=== PATIENT | female | born 1990 ===

== ENCOUNTER 2018-12-09 16:53 | Emergency (ER) | payer MEDICAID, OTHER ==
[2018-12-09 16:54] VITALS: BMI 32.2
[2018-12-09 17:41] VITALS: BP 96/60; PULSE 88; RESP 16; TEMP 97.6; O2SAT 100
--- NOTE | 2018-12-09 20:41 | ED PDOC ---
HPI: General Adult Time Seen by Provider: 12/09/18 18:50 Chief Complaint (Nursing): Med Refill Chief Complaint (Provider): Med Refill History Per: Patient History/Exam Limitations: no limitations Onset/Duration Of Symptoms: Days (4x days) Current Symptoms Are (Timing): Still Present Severity: Moderate Additional Complaint(s): 28 year old female with a history of seizures presents to the ED for a medication refill. Patient reports that she recently moved to [place] from [place] on 08/13/2018. Due to insurance issues, patient was unable to follow up with PMD or neurologist here, and ran out of her medications. On 11/06/2018 patient reports having a seizure and being hospitalized at [facility] [place]. Patient was there for 1x week for a questionable evaluation of a psychiatric problem. Patient was discharged home with no psychiatric diagnosis. Patient reports having a seizure 3x days ago while at [employer] where she fell onto her right hip. Patient was not evaluated by medical personnel, and went home. Patient reports that she has run out of seizure medications, and her last dose of Keppra and Zonisamide was today. Patient complains of lower back pain since the fall 3x days ago. Otherwise, patient denies having numbness, tingling, dysuria, urinary frequency, fevers, chills, and night sweats. PMD: None. Past Medical History Reviewed: Historical Data, Nursing Documentation, Vital Signs Vital Signs: Last Vital Signs Temp 97.6 F 12/09/18 17:40 Pulse 88 12/09/18 17:40 Resp 16 12/09/18 17:40 BP 96/60 L 12/09/18 17:40 Pulse Ox 100 12/09/18 17:40 PATT Report Viewed: Yes - Medical History PMH: Graves' Disease, Seizures Denies: Chronic Kidney Disease - Family History Family History: States: No Known Family Hx - Social History Current smoker - smoking cessation education provided: No Alcohol: None Drugs: Denies - Immunization History Hx Tetanus Toxoid Vaccination: No Hx Influenza Vaccination: No Hx Pneumococcal Vaccination: No - Home Medications Home Medications: Ambulatory Orders Medication Instructions Recorded Clonazepam [Klonopin] 1 mg PO HS 12/18/17 Levetiracetam [Keppra] 750 mg PO BID 12/18/17 Zonisamide [Zonegran] 300 mg PO BID 12/18/17 Naproxen 375 mg PO BID PRN #20 tablet 02/25/18 Lacosamide [Vimpat] 200 mg PO BID #20 tab 12/09/18 Levetiracetam [Keppra] 750 mg PO BID #30 tablet 12/09/18 Zonisamide [Zonegran] 100 mg PO BID #50 capsule 12/09/18 - Allergies Allergies/Adverse Reactions: Allergies Allergy/AdvReac Type Severity Reaction Status Date / Time No Known Allergies Allergy Verified 12/09/18 17:40 Review of Systems ROS Statement: Except As Marked, All Systems Reviewed And Found Negative Constitutional: Negative for: Fever, Chills, Sweats Genitourinary Female: Negative for: Dysuria, Frequency Musculoskeletal: Positive for: Back Pain (lower back pain) Neurological: Negative for: Numbness ((-) tingling) Physical Exam - Reviewed Nursing Documentation Reviewed: Yes Vital Signs Reviewed: Yes - Physical Exam Appears: Positive for: Well, Non-toxic, No Acute Distress Head Exam: Positive for: ATRAUMATIC, NORMOCEPHALIC Cardiovascular/Chest: Positive for: Regular Rate, Rhythm Respiratory: Positive for: Normal Breath Sounds Back: Positive for: Other (mild tenderness on palpation of bilateral lower back. (-) cervical tenderness, (-) lumbar tenderness. Normal flexion and extension at back. Normal flexion and extension at bilateral hips. (+) ecchymosis on right side of hip.) Neurologic/Psych: Positive for: Alert, Oriented (3x) - ECG O2 Sat by Pulse Oximetry: 100 (RA) Pulse Ox Interpretation: Normal Medical Decision Making Medical Decision Makin:50 Initial impression: 28 year old female in the ED for a medication refill and lower back pain status post seizure. Initial plan: [facility] website. Evaluation shows that the last refill of Clonazepam was on 10/03/2018 for 10x days. No other recent activity for refills of Clonazepam in any other states. Patient will be prescribed Keppra, Zonisamide, and Vimpat until neurology follow up appointment on 12/20/2018. Return instructions provided. Scribe Attestation: Documented byDaysi Estrada, acting as a scribe for Funmi Amanda PA-C. Provider Scribe Attestation: All medical record entries made by the Scribe were at my direction and personally dictated by me. I have reviewed the chart and agree that the record accurately reflects my personal performance of the history, physical exam, medical decision making, and the department course for this patient. I have also personally directed, reviewed, and agree with the discharge instructions and disposition. Disposition - Clinical Impression Clinical Impression: Medicine refill, Seizure disorder - Disposition Referrals: [facility] [Outside] Disposition Time: 20:30 Condition: STABLE Additional Instructions: Return to ER if you have recurrent seizures or have a delay in seeing your neurologist. Take Ibuprofen or Tylenol for back pain. Prescriptions: Lacosamide [Vimpat] 200 mg PO BID #20 tab Levetiracetam [Keppra] 750 mg PO BID #30 tablet Zonisamide [Zonegran] 100 mg PO BID #50 capsule Instructions: Seizures, Adult (DC) Forms: [employer] (Portuguese) Print Language: TUVALUAN
== END 2018-12-09 20:35 | disposition home or self-care (01) ==
LOC: H.ER 16:53
DX: G40.909 Epilepsy, unspecified, not intractable, without status epilepticus (principal); Z76.0 Encounter for issue of repeat prescription; E05.00 Thyrotoxicosis with diffuse goiter without thyrotoxic crisis or storm; Z79.899 Other long term (current) drug therapy

== ENCOUNTER 2019-03-12 23:24 | Emergency (ER) | payer OTHER, MEDICAID ==
[2019-03-12 23:31] VITALS: RESP 18; BMI 26.4
[2019-03-13 01:33] LABS: BASO % 0.5 % (0.0-2.0); EOS # 0.1 K/uL (0.0-0.7); EOS % 1.2 % (0.0-4.0); HEMOGLOBIN 13.3 g/dL (12.0-16.0); LYMPH # 2.7 K/uL (1.0-4.3); LYMPH % 35.9 % (20.0-40.0); MEAN CELL VOLUME 90.3 fl (81.0-99.0); MEAN CORPUSCULAR HEMOGLOBIN 30.1 pg (27.0-31.0); MEAN CORPUSCULAR HGB CONC 33.4 g/dL (33.0-37.0); MEAN PLATELET VOLUME 11.4 fl (7.2-11.7); MONO # 0.5 K/uL (0.0-0.8); MONO % 6.9 % (0.0-10.0); NEUT # 4.2 K/uL (1.8-7.0); NEUT % 55.5 % (50.0-75.0); NRBC % 0.1 % (0.0-0.0); RBC 4.41 Mil/uL (3.80-5.20); RED CELL DISTRIBUTION WIDTH 13.3 % (11.5-14.5); WHITE BLOOD COUNT 7.6 K/uL (4.8-10.8)
[2019-03-13] MEDS ORDERED: Tdap Vaccine 0.5 ml Vial (10-64 yrs) IM ONE ×2 (01:34→01:46)
[2019-03-13] MEDS ORDERED: levETIRAcetam 500 MG in Sodium Chloride 0.9% 100 ML IVPB ONE (01:35)
[2019-03-13] MEDS ORDERED: Sodium Chloride 0.9% 1,000 ML IV STA ×2 (01:35→04:34)
[2019-03-13 01:41] LABS: ALB/GLOB RATIO 1.3 (1.0-2.1); ALBUMIN 4.3 g/dL (3.5-5.0); ALT/SGPT 15 U/L (9-52); AST/SGOT 21 U/L (14-36); BLOOD UREA NITROGEN 11 mg/dl (7-17); CALCIUM 9.1 mg/dL (8.4-10.2); GFR NON-AFRICAN AMERICAN > 60
--- NOTE | 2019-03-13 01:44 | ED PDOC ---
HPI: Seizure Time Seen by Provider: 03/12/19 23:35 Chief Complaint (Nursing): Syncope Chief Complaint (Provider): Seizure History Per: Patient History/Exam Limitations: no limitations Recent Seizure Activity Began: Hours Ago: (x 1) Number Of Seizures: One Length Of Seizures (Duration): Unknown Quality Of Seizure: Generalized Post-ictal Period: Duration Unknown Additional Complaint(s): 29 year old female with a history of seizures presents to the ED for evaluation after a seizure, one hour prior to arrival. Patient reports she took a shower and was getting dressed when she fell, suffering a cut to her jaw area. Patient is unsure what she hit her head on. She states that she feels back to normal now and adds that the frequency of her seizures increases this time of year due to seasonal allergies. She reports compliance with her Keppra, Clonazepam and other medication. Patient had a vagus nerve stimulator placed in an attempt to control seizures without relief. She last saw a neurologist three weeks ago, but does not remember the name of said neurologist. PMD: Dr. Pabon Past Medical History Reviewed: Historical Data, Nursing Documentation, Vital Signs Vital Signs: Last Vital Signs Temp 97.6 F 03/12/19 23:31 Pulse 75 03/12/19 23:31 Resp 18 03/12/19 23:31 BP 93/61 L 03/12/19 23:31 Pulse Ox 100 03/12/19 23:31 - Medical History PMH: Graves' Disease, Seizures Denies: Chronic Kidney Disease - Surgical History Other surgeries: VNS placement - Family History Family History: States: Unknown Family Hx - Living Arrangements Living Arrangements: Other (here w male director of instructional technology) - Social History Current smoker - smoking cessation education provided: No Alcohol: None Drugs: Denies - Immunization History Hx Tetanus Toxoid Vaccination: No Hx Influenza Vaccination: No Hx Pneumococcal Vaccination: No - Home Medications Home Medications: Ambulatory Orders Medication Instructions Recorded Clonazepam [Klonopin] 1 mg PO HS 12/18/17 Naproxen 375 mg PO BID PRN #20 tablet 02/25/18 Lacosamide [Vimpat] 200 mg PO BID #20 tab 12/09/18 Levetiracetam [Keppra] 750 mg PO BID #30 tablet 12/09/18 Zonisamide [Zonegran] 100 mg PO BID #50 capsule 12/09/18 - Allergies Allergies/Adverse Reactions: Allergies Allergy/AdvReac Type Severity Reaction Status Date / Time No Known Allergies Allergy Verified 03/12/19 23:51 Review of Systems ROS Statement: Except As Marked, All Systems Reviewed And Found Negative ENT: Positive for: Other (laceration to right side of chin) Physical Exam - Reviewed Nursing Documentation Reviewed: Yes Vital Signs Reviewed: Yes - Physical Exam Appears: Positive for: Non-toxic, No Acute Distress Head Exam: Positive for: ATRAUMATIC, NORMAL INSPECTION, NORMOCEPHALIC Skin: Positive for: Normal Color, Warm, Dry Eye Exam: Positive for: EOMI, Normal appearance, PERRL ENT: Positive for: Other (1/2 inch, linerar laceration under right part of chin with no active bleeding) Neck: Positive for: Normal, Painless ROM Cardiovascular/Chest: Positive for: Regular Rate, Rhythm. Negative for: Murmur Respiratory: Positive for: Normal Breath Sounds. Negative for: Respiratory Distress Gastrointestinal/Abdominal: Positive for: Normal Exam, Soft. Negative for: Tenderness, Mass, Guarding Back: Positive for: Normal Inspection. Negative for: L CVA Tenderness, R CVA Tenderness Extremity: Positive for: Normal ROM (x 4). Negative for: Deformity Neurological/Psych: Positive for: Awake, Alert, Normal Tone, Oriented (x 3), Mood/Affect (flat affect). Negative for: Motor/Sensory Deficits, Facial Droop - Laboratory Results Result Diagrams: 03/13/19 01:30 03/13/19 01:30 - ECG ECG: Positive for: Interpreted By Me, Viewed By Me ECG Rhythm: Positive for: Sinus Rhythm (normal) Rate: 69 O2 Sat by Pulse Oximetry: 100 (RA) Pulse Ox Interpretation: Normal Medical Decision Making Medical Decision Makin:47 Impression: s/p seizure - breakthrough seizure, history of seizures Initial Plan: --CT head --CMP --CBC --Tetanus 0.5 ml IJ --Keppra 500 mg in NS 100 ml --NS IV 1,000 mls --Tylenol 650 mg PO --Dermabond 03:10 CT SCAN OF THE BRAIN WITHOUT IV CONTRAST Normal size of the ventricles and extra-axial spaces for the patient's age. Normal white matter tracts of the supratentorial brain. Normal basal ganglia and thalami. Normal brainstem. Normal cerebellum. There is no demonstrated extra-axial, intraparenchymal, or intraventricular hemorrhage. There are no findings of an acute ischemic infarction. Normal calvarium. There is no demonstrated fracture. Normal soft tissue structures. Normal visualized paranasal sinuses. IMPRESSION: Normal unenhanced CT scan of the brain. 04:19 Patient has an appointment with her new neurologist tomorrow. States she has enough Keppra and Clonzapem to last until tomorrow. Laceration was repaired successfully with Dermabond after irrigation with saline. pt was loaded w keppra to ensure adequate dosage Patient requires no further treatment and is stable for discharge. pt awake and alert, gait intact and in no distress dc w male director of instructional technology - Scribe Attestation: Documented by Mary Jo Natarajan, acting as a scribe for Eun Mchugh MD Provider Scribe Attestation: All medical record entries made by the Scribe were at my direction and personall y dictated by me. I have reviewed the chart and agree that the record accurately reflects my personal performance of the history, physical exam, medical decision making, and the department course for this patient. I have also personally directed, reviewed, and agree with the discharge instructions and disposition. Disposition - Clinical Impression Clinical Impression: Seizure - Patient ED Disposition Is Patient to be Admitted: No Counseled Patient/Family Regarding: Studies Performed, Diagnosis, Need For Followup - Disposition Disposition: Routine/Home Disposition Time: 04:21 Condition: IMPROVED Additional Instructions: follow up with your primary NEUROLOGIST TOMORROW make sure to take all your medications as directed return to the ED with any worsening or concerning symptoms Instructions: Seizures, Adult (DC) Forms: [employer] (Lebanese)
[2019-03-13 04:14] VITALS: O2SAT 100
[2019-03-13 06:14] VITALS: BP 101/62; PULSE 74; TEMP 97.8
--- NOTE | 2019-03-13 08:58 | CT ---
Date of service: 03/13/2019 PROCEDURE: CT HEAD WITHOUT CONTRAST. HISTORY: seizure COMPARISON: None available. TECHNIQUE: Axial computed tomography images were obtained through the head/brain without intravenous contrast. Radiation dose: Total exam DLP = 776.39 mGy-cm. This CT exam was performed using one or more of the following dose reduction techniques: Automated exposure control, adjustment of the mA and/or kV according to patient size, and/or use of iterative reconstruction technique. FINDINGS: HEMORRHAGE: No intracranial hemorrhage. BRAIN: Normal loyd-white matter differentiation and density are appreciated throughout the cerebrum and cerebellum with the brainstem appearing unremarkable as well. There is no mass effect. There is no suspicious extra-axial fluid collection and the midline brain anatomy appears diffusely unremarkable. VENTRICLES: Unremarkable. No hydrocephalus. CALVARIUM: No destructive bony lesion or displaced fracture identified including through the skullbase. PARANASAL SINUSES: Unremarkable as visualized. No significant inflammatory changes. MASTOID AIR CELLS: Unremarkable as visualized. No inflammatory changes. OTHER FINDINGS: None. IMPRESSION: Normal CT of the Head. Consider follow-up elective brain MRI without contrast given clinical history of seizure. Concordant preliminary report from [facility], 03/13/2019, 3:10 a.m..
== END 2019-03-13 06:12 | disposition home or self-care (01) ==
LOC: H.ER 23:24
DX: G40.909 Epilepsy, unspecified, not intractable, without status epilepticus (principal); S01.81XA Laceration without foreign body of other part of head, initial encounter; W19.XXXA Unspecified fall, initial encounter; Y92.002 Bathroom of unspecified non-institutional (private) residence as the place of occurrence of the external cause; E05.00 Thyrotoxicosis with diffuse goiter without thyrotoxic crisis or storm
CPT/HCPCS: 70450; 80053; 81025; 85025; 90471; 90715; 96361; 96374; 96375; 99285; J1885; J1953; J7030

== ENCOUNTER 2019-03-20 12:11 | Emergency (ER) | payer MEDICAID, OTHER ==
[2019-03-20 12:11] VITALS: BMI 26.4
[2019-03-20 12:23] VITALS: BP 101/65; PULSE 79; RESP 18; TEMP 98.7; O2SAT 100
--- NOTE | 2019-03-20 12:59 | ED PDOC ---
HPI: General Adult Time Seen by Provider: 03/20/19 12:40 Chief Complaint (Nursing): Med Refill Chief Complaint (Provider): med refill Additional Complaint(s): 29 y/o F with hx of seizures who come in for medication refill. Pt states that she takes Zonisamide 100mg 2 tabs in AM and 3 tabs in PM, which she has run out of (last dose yesterday). She also takes Vimpat 200mg PO BID (has 3 days left), Clonazepam 1mg PO daily (has 4 days left) and Keppra 750mg 1 tab PO QAM and 2 tabs PO QPM (has 7 days left). She has not been able to follow up with neurologist as her insurance has changed and has not found one that will accept her insurance. Her last seizure was 03/11/19 at which time she was seen in ED. She attempted to see PMD (Dr. Pabon) who would not refill meds stating neurologist had to do this. Denies seizure recurrence since last admission and has taken meds up until yesterday. Past Medical History Reviewed: Historical Data, Nursing Documentation, Vital Signs Vital Signs: Last Vital Signs Temp 98.7 F 03/20/19 12:20 Pulse 79 03/20/19 12:20 Resp 18 03/20/19 12:20 BP 101/65 03/20/19 12:20 Pulse Ox 100 03/20/19 12:20 - Medical History PMH: Graves' Disease, Seizures Denies: Chronic Kidney Disease - Family History Family History: States: Unknown Family Hx - Immunization History Hx Tetanus Toxoid Vaccination: No Hx Influenza Vaccination: No Hx Pneumococcal Vaccination: No - Home Medications Home Medications: Ambulatory Orders Medication Instructions Recorded Clonazepam [Klonopin] 1 mg PO HS 12/18/17 Naproxen 375 mg PO BID PRN #20 tablet 02/25/18 Levetiracetam [Keppra] 750 mg PO BID #30 tablet 12/09/18 Zonisamide [Zonegran] 100 mg PO BID #50 capsule 12/09/18 Zonisamide [Zonegran] 100 mg PO BID #20 cap 03/20/19 - Allergies Allergies/Adverse Reactions: Allergies Allergy/AdvReac Type Severity Reaction Status Date / Time No Known Allergies Allergy Verified 03/12/19 23:51 Review of Systems Constitutional: Negative for: Fever, Chills Neurological: Negative for: Weakness, Incoordination, Change in Speech, Altered Mental Status, Headache Physical Exam - Reviewed Nursing Documentation Reviewed: Yes Vital Signs Reviewed: Yes - Physical Exam Appears: Positive for: Non-toxic Head Exam: Positive for: ATRAUMATIC Skin: Positive for: Normal Color Eye Exam: Positive for: Normal appearance Neck: Positive for: Normal, Painless ROM, Supple Cardiovascular/Chest: Positive for: Regular Rate, Rhythm Respiratory: Positive for: Normal Breath Sounds Neurological/Psych: Positive for: Awake, Alert, Symmetric/Intact Strength (in B/L upper and lower extremities), Oriented, camera prototyping engineer II-XII (able to puff cheeks and smild symmetrically, no tongue deviation. ). Negative for: Lethargic, Motor/Se nsory Deficits - ECG O2 Sat by Pulse Oximetry: 100 Medical Decision Making Medical Decision Making: [facility] [employer] website queried and patient last filled Clonazepam 12/19/18 30 day supply with 2 refills. Patient's PMD (Dr. Ken Pabon) contacted and spoke with child care assistant who states that medications were not refilled as she still had supply and that she could walk in to be seen at any time to have medications refilled. Pt advised that she would be given a 5 day supply of Zonisamide since she has run out but that she would need to follow up with Dr. Pabon as soon as possible for ongoing medication refills for her other medications until she can see her neurologist. She demonstrated understanding. Disposition - Clinical Impression Clinical Impression: Medicine refill, Seizure disorder - Disposition Referrals: Shaik Pabon MD [Family Provider] - Disposition: Routine/Home Disposition Time: 13:41 Condition: STABLE Additional Instructions: Follow up with Dr. Pabon (your primary care doctor) as soon as possible for full medication refills. Follow up with neurologist as soon as possible as well. Return to ER if you are unable to get medications refilled or if you have recurrent seizures. Prescriptions: Zonisamide [Zonegran] 100 mg PO BID #20 cap Instructions: Seizures, Adult (DC) Forms: [id number] (Khmer) Print Language: THAI
== END 2019-03-20 13:41 | disposition home or self-care (01) ==
LOC: H.ER 12:11
DX: G40.909 Epilepsy, unspecified, not intractable, without status epilepticus (principal); Z76.0 Encounter for issue of repeat prescription; Z59.7 Insufficient social insurance and welfare support; E05.00 Thyrotoxicosis with diffuse goiter without thyrotoxic crisis or storm

== ENCOUNTER 2019-04-03 13:21 | Emergency (ER) | payer MEDICAID ==
[2019-04-03 13:45] VITALS: BMI 24.0
[2019-04-03 13:46] VITALS: O2SAT 100
[2019-04-03] MEDS ORDERED: Sodium Chloride 0.9% 1,000 ML IV STA (14:34)
--- NOTE | 2019-04-03 14:44 | ED PDOC ---
HPI: Abdomen Time Seen by Provider: 04/03/19 14:04 Chief Complaint (Nursing): GI Problem Chief Complaint (Provider): Abdominal pain, medication refill History Per: Patient History/Exam Limitations: no limitations Additional Complaint(s): Pt reports abdominal pain, associated with nausea and diarrhea. Was evaluated by PMD who dx gastritis. Denies fever, vomiting, symptoms. Also requests refill for Vimpat 200 mg bid. Past Medical History Reviewed: Nursing Documentation, Vital Signs Vital Signs: Last Vital Signs Temp 98.4 F 04/03/19 13:45 Pulse 88 04/03/19 13:45 Resp 16 04/03/19 13:45 BP 90/61 L 04/03/19 13:45 Pulse Ox 100 04/03/19 13:45 Primary Care Provider: Non [facility] Provider, - Medical History PMH: Graves' Disease, Seizures Denies: Chronic Kidney Disease - Surgical History Surgical History: No Surg Hx - Family History Family History: States: Unknown Family Hx - Social History Current smoker - smoking cessation education provided: No Alcohol: None - Immunization History Hx Tetanus Toxoid Vaccination: No Hx Influenza Vaccination: No Hx Pneumococcal Vaccination: No - Home Medications Home Medications: Ambulatory Orders Medication Instructions Recorded Clonazepam [Klonopin] 1 mg PO HS 12/18/17 Naproxen 375 mg PO BID PRN #20 tablet 02/25/18 Levetiracetam [Keppra] 750 mg PO BID #30 tablet 12/09/18 Zonisamide [Zonegran] 100 mg PO BID #50 capsule 12/09/18 Zonisamide [Zonegran] 100 mg PO BID #20 cap 03/20/19 Dicyclomine [Bentyl] 20 mg PO QID PRN #10 tab 04/03/19 Lacosamide [Vimpat] 200 mg PO BID #14 tab 04/03/19 Ondansetron ODT [Zofran ODT] 4 mg PO Q8H PRN #20 odt 04/03/19 - Allergies Allergies/Adverse Reactions: Allergies Allergy/AdvReac Type Severity Reaction Status Date / Time No Known Allergies Allergy Verified 04/03/19 13:55 Review of Systems Constitutional: Negative for: Fever, Chills Cardiovascular: Negative for: Chest Pain Respiratory: Negative for: Cough, Shortness of Breath Gastrointestinal: Positive for: Nausea, Abdominal Pain, Diarrhea. Negative for: Vomiting Genitourinary Female: Negative for: Dysuria, Hematuria Skin: Negative for: Rash, Lesions Neurological: Negative for: Headache Physical Exam - Reviewed Nursing Documentation Reviewed: Yes Vital Signs Reviewed: Yes - Physical Exam Appears: Positive for: Well, No Acute Distress Head Exam: Positive for: ATRAUMATIC, NORMAL INSPECTION Skin: Positive for: Normal Color, Warm, Dry Eye Exam: Positive for: Normal appearance, EOMI, PERRL Cardiovascular/Chest: Positive for: Regular Rate, Rhythm Respiratory: Positive for: Normal Breath Sounds Gastrointestinal/Abdominal: Positive for: Bowel Sounds, Soft, Tenderness (LUQ). Negative for: Distended, Guarding, Rebound Back: Positive for: Normal Inspection Extremity: Positive for: Normal ROM Neurological/Psych: Positive for: Awake, Alert, Oriented - Laboratory Results Result Diagrams: 04/03/19 15:15 04/03/19 15:15 - ECG O2 Sat by Pulse Oximetry: 100 Medical Decision Making Medical Decision Makin yo female with nausea, abdominal pain and diarrhea. - labs - CT abd/pelvis - IVF - Zofran Accession No. : [id number] Patient Name / ID : SO JOVEL / [id number] Exam Date : 04/03/2019 16:35:05 ( Approved ) Study Comment : Sex / Age : F / 29Y Creator : Dario Graham MD Dictator : Dario Graham MD Bed Setter : Diesel Dinkey Operator : Dario Graham MD Approver2 : Report Date : 04/03/2019 17:06:06 My Comment : Date of service: 04/03/2019 PROCEDURE: CT Abdomen and Pelvis without intravenous contrast HISTORY: LUQ pain, nausea, diarrhea Negative test (concurrent with this examination). COMPARISON: None. TECHNIQUE: Unenhanced. Neither IV nor oral contrast administered Radiation dose: Total exam DLP = 391.89 mGy-cm. This CT exam was performed using one or more of the following dose reduction techniques: Automated exposure control, adjustment of the mA and/or kV according to patient size, and/or use of iterative reconstruction technique. FINDINGS: LOWER THORAX: Unremarkable. LIVER: Unremarkable. No gross lesion or ductal dilatation. GALLBLADDER AND BILE DUCTS: Unremarkable. PANCREAS: Unremarkable. No gross lesion or ductal dilatation. SPLEEN: Unremarkable. ADRENALS: Unremarkable. No mass. KIDNEYS AND URETERS: Unremarkable. No hydronephrosis. No solid mass. VASCULATURE: Unremarkable. No aortic aneurysm. No atherosclerotic calcification or mural plaque present. BOWEL: Unremarkable. No obstruction. No gross mural thickening. APPENDIX: A normal appendix is visualized in it's entirety. PERITONEUM: Unremarkable. No free fluid. No free air. LYMPH NODES: Unremarkable. No enlarged lymph nodes. BLADDER: Unremarkable. REPRODUCTIVE: Unremarkable. BONES: No acute fracture. OTHER FINDINGS: None. IMPRESSION: Unremarkable non contrast enhanced CT of the abdomen and pelvis. Disposition - Clinical Impression Clinical Impression: Gastroenteritis, Medicine refill - Disposition Disposition: Routine/Home Disposition Time: 18:57 Condition: IMPROVED Additional Instructions: FOLLOW-UP WITH PMD WITHIN 2 DAYS FOR REEVALUATION. Prescriptions: Dicyclomine [Bentyl] 20 mg PO QID PRN #10 tab PRN Reason: Pain, Moderate (4-7) Lacosamide [Vimpat] 200 mg PO BID #14 tab Ondansetron ODT [Zofran ODT] 4 mg PO Q8H PRN #20 odt PRN Reason: Nausea/Vomiting Instructions: Diarrhea in Adolescents and Adults Forms: [employer] (Surinamese)
[2019-04-03 15:43] LABS: BASO % 0.6 % (0.0-2.0); EOS # 0.1 K/uL (0.0-0.7); EOS % 1.2 % (0.0-4.0); HEMOGLOBIN 14.3 g/dL (12.0-16.0); LYMPH # 1.3 K/uL (1.0-4.3); LYMPH % 27.5 % (20.0-40.0); MEAN CELL VOLUME 90.5 fl (81.0-99.0); MEAN CORPUSCULAR HEMOGLOBIN 29.9 pg (27.0-31.0); MEAN PLATELET VOLUME 11.7 fl (7.2-11.7); MONO # 0.7 K/uL (0.0-0.8); MONO % 14.5 % (0.0-10.0); NEUT # 2.6 K/uL (1.8-7.0); NEUT % 56.2 % (50.0-75.0); NRBC % 0.3 % (0.0-0.0); RBC 4.8 Mil/uL (3.80-5.20); RED CELL DISTRIBUTION WIDTH 13.1 % (11.5-14.5); WHITE BLOOD COUNT 4.7 K/uL (4.8-10.8)
[2019-04-03 15:45] LABS: SQUAMOUS EPITHIAL 4 /hpf (0-5); URINE BACTERIA RARE (<OCC); URINE BILIRUBIN NEGATIVE (NEGATIVE); URINE BLOOD NEGATIVE (NEGATIVE); URINE CLARITY SLIGHTY-CLOUDY (Clear); URINE COLOR YELLOW (YELLOW); URINE GLUCOSE (UA) NEG (NEGATIVE); URINE LEUKOCYTE ESTERASE TRACE Leu/uL (Negative); URINE PROTEIN NEGATIVE (NEGATIVE); URINE UROBILINOGEN 0.2-1.0 mg/dL (0.2-1.0)
[2019-04-03 16:15] LABS: ALB/GLOB RATIO 1.1 (1.0-2.1); ALT/SGPT < 6 U/L (9-52); AST/SGOT 40 U/L (14-36); BLOOD UREA NITROGEN 10 mg/dl (7-17); CALCIUM 9.8 mg/dL (8.4-10.2); GFR NON-AFRICAN AMERICAN > 60; LIPASE 77 U/L (23-300)
--- NOTE | 2019-04-03 17:09 | CT ---
Date of service: 04/03/2019 PROCEDURE: CT Abdomen and Pelvis without intravenous contrast HISTORY: LUQ pain, nausea, diarrhea Negative test (concurrent with this examination). COMPARISON: None. TECHNIQUE: Unenhanced. Neither IV nor oral contrast administered Radiation dose: Total exam DLP = 391.89 mGy-cm. This CT exam was performed using one or more of the following dose reduction techniques: Automated exposure control, adjustment of the mA and/or kV according to patient size, and/or use of iterative reconstruction technique. FINDINGS: LOWER THORAX: Unremarkable. LIVER: Unremarkable. No gross lesion or ductal dilatation. GALLBLADDER AND BILE DUCTS: Unremarkable. PANCREAS: Unremarkable. No gross lesion or ductal dilatation. SPLEEN: Unremarkable. ADRENALS: Unremarkable. No mass. KIDNEYS AND URETERS: Unremarkable. No hydronephrosis. No solid mass. VASCULATURE: Unremarkable. No aortic aneurysm. No atherosclerotic calcification or mural plaque present. BOWEL: Unremarkable. No obstruction. No gross mural thickening. APPENDIX: A normal appendix is visualized in it's entirety. PERITONEUM: Unremarkable. No free fluid. No free air. LYMPH NODES: Unremarkable. No enlarged lymph nodes. BLADDER: Unremarkable. REPRODUCTIVE: Unremarkable. BONES: No acute fracture. OTHER FINDINGS: None. IMPRESSION: Unremarkable non contrast enhanced CT of the abdomen and pelvis.
[2019-04-03 19:10] VITALS: BP 133/59; PULSE 66; RESP 18; TEMP 97.8
== END 2019-04-03 19:15 | disposition home or self-care (01) ==
LOC: H.ER 13:21
DX: K52.9 Noninfective gastroenteritis and colitis, unspecified (principal); Z76.0 Encounter for issue of repeat prescription; E05.00 Thyrotoxicosis with diffuse goiter without thyrotoxic crisis or storm; Z79.899 Other long term (current) drug therapy
CPT/HCPCS: 74176; 80053; 81003; 81025; 83690; 85025; 96360; 99284; J2405; J7030